=== PATIENT | female | born 1980 | race African-American/Black ===

== ENCOUNTER 2016-11-08 19:46 | Emergency (ER) | payer MEDICAID ==
[~2016-11-08] VITALS: Ht 167.6 cm; Wt 97.0 kg
[~2016-11-08 19:46] MED LIST: AMOXICILLIN500 MG OR; BACTRIM DS1 TAB PO; CIPRO500 MG OR; CLEOCIN150 MG OR; CLEOCIN300 MG OR; CLEOCIN300 MG PO; CLINDAMYCIN300 M1 PO; CORTISPORIN OTI10 ML AD; E.E.S. 400400 MG OR; FLEXERIL OR; FLEXERIL PO; LORTAB 1010 MG PO; LORTAB 5 OR; LORTAB 5-325 MG1 TAB PO; MEDDOSEPAK OR; MOTRIN800 MG PO; NAPROSYN500 MG OR; NAPROSYN500 MG PO; NO HOME MEDS; PENICILLN VK500 MG OR; PERCOCET 5/325M1 TAB OR; PERCOCET 5/325M1 TAB PO; PROMETHAZINE25 MG OR; ROBITUSSIN AC10 ML OR; TAMIFLU12 MG/ML OR; TORADOL PO; TRAMADOL HCL50 MG OR; TRAMADOL HCL50 MG PO; ULTRAM50 M1 PO; ULTRAM50 MG OR; ULTRAM50 MG PO; ZITHROMAX250 MG PO; ZOFRAN ODT4 MG OR; ZPAK PO
[2016-11-08] MEDS ORDERED: ULTRAM50 M1 PO (20:48)
[2016-11-08 20:55] VITALS: BP 106/66
== END 2016-11-08 20:55 | disposition home or self-care (01) | DRG 563 ==
LOC: ED 19:46
DX: S93.401A Sprain of unspecified ligament of right ankle, initial encounter (principal); X50.0XXA Overexertion from strenuous movement or load, initial encounter; Y92.009 Unspecified place in unspecified non-institutional (private) residence as the place of occurrence of the external cause

== ENCOUNTER 2017-07-12 06:32 | Emergency (ER) | payer MEDICAID ==
[~2017-07-12] VITALS: Ht 167.6 cm; Wt 100.0 kg
[2017-07-12] MEDS ORDERED: CLINDAMYCIN HC150 MG PO (06:42)
[2017-07-12] MEDS ORDERED: TRAMADOL HCL50 MG PO (06:42)
[2017-07-12 07:29] LABS: HEMATOCRIT 39.5 % (37.0-47.0); HEMOGLOBIN 12.7 g/dl (12.0-16.0); IMMATURE GRANULOCYTES 0.4 % (0.0-1.0); MEAN CELL VOLUME 86.2 fL CALC (80.0-100.0); MEAN CORPUSCULAR HGB 27.7 pG CALC (26.0-32.0); MEAN CORPUSCULAR HGB CONC 32.2 g/L CALC (32.0-36.0); NEUT# 11.49 thou/uL (2.00-7.15); RED BLOOD COUNT 4.58 mill/uL (4.20-5.60); RED CELL DISTRI WIDTH 14.4 % (11.5-15.5)
[2017-07-12 07:45] LABS: ALBUMIN 4.4 g/dL (3.2-5.0); ALKALINE PHOSPHATASE 74 u/l (38-126); ANION GAP 18 (6-22 (CALC)); BILIRUBIN, TOTAL 0.5 mg/dL (0.0-1.4); BUN 6 mg/dL (7-17); BUN/CREATININE RATIO 6 (12-20 (CALC)); CARBON DIOXIDE 23 mmol/l (22-30); CHLORIDE 104 mmol/l (95-108); CREATININE 1.1 mg/dL (0.5-1.0); GFR 57 ML/MIN (>=60 (CALC)); GFR FOR AFR.AMER. > 60 ML/MIN (>=60 (CALC)); LIPASE 21 u/l (23-300); SGOT/AST 17 u/l (14-36); SGPT/ALT 20 u/l (9-52); SODIUM 141 mmol/l (137-146); TOTAL PROTEIN 8.3 g/dL (6.3-8.2)
[2017-07-12 07:46] LABS: POTASSIUM 3.9 mmol/l (3.5-5.1)
[2017-07-12 08:04] LABS: BARBITURATES NEGATIVE (NEGATIVE); COCAINE NEGATIVE (NEGATIVE); METHADONE NEGATIVE (NEGATIVE); OXCYCODONE NEGATIVE (NEGATIVE); TETRAHYDROCANNABIONOL POSITIVE (NEGATIVE); TRICYLIC ANTIDEPRESSANTS NEGATIVE (NEGATIVE)
[2017-07-12] MEDS ORDERED: MOTRIN400 MG PO (08:27)
[2017-07-12] MEDS ORDERED: PHENERGAN25 MG/TAB PO (08:27)
[2017-07-12 08:33] VITALS: BP 158/68
== END 2017-07-12 08:37 | disposition home or self-care (01) | DRG 103 ==
LOC: ED 06:32
PROVIDERS: Emergency Medicine
DX: R51 Headache (principal); K08.89 Other specified disorders of teeth and supporting structures; R11.2 Nausea with vomiting, unspecified; R10.9 Unspecified abdominal pain

== ENCOUNTER 2017-07-13 05:57 | Emergency (ER) | payer MEDICAID ==
[~2017-07-13] VITALS: Ht 167.6 cm; Wt 95.9 kg
[~2017-07-13 05:57] MED LIST changes: +CLINDAMYCIN HC150 MG PO; +MOTRIN400 MG PO; +PHENERGAN25 MG/TAB PO
[2017-07-13 07:29] LABS: HEMATOCRIT 37.1 % (37.0-47.0); HEMOGLOBIN 11.8 g/dl (12.0-16.0); IMMATURE GRANULOCYTES 0.5 % (0.0-1.0); MEAN CELL VOLUME 87.1 fL CALC (80.0-100.0); MEAN CORPUSCULAR HGB 27.7 pG CALC (26.0-32.0); MEAN CORPUSCULAR HGB CONC 31.8 g/L CALC (32.0-36.0); NEUT# 10.21 thou/uL (2.00-7.15); RED BLOOD COUNT 4.26 mill/uL (4.20-5.60); RED CELL DISTRI WIDTH 14.2 % (11.5-15.5)
[2017-07-13 07:42] LABS: ANION GAP 14 (6-22 (CALC)); BUN 8 mg/dL (7-17); BUN/CREATININE RATIO 8 (12-20 (CALC)); CARBON DIOXIDE 26 mmol/l (22-30); CHLORIDE 106 mmol/l (95-108); CREATININE 1.1 mg/dL (0.5-1.0); GFR 57 ML/MIN (>=60 (CALC)); GFR FOR AFR.AMER. > 60 ML/MIN (>=60 (CALC)); POTASSIUM 3.7 mmol/l (3.5-5.1); SODIUM 142 mmol/l (137-146)
[2017-07-13 10:25] VITALS: BP 93/67
== END 2017-07-13 10:25 | disposition home or self-care (01) | DRG 138 ==
LOC: ED 05:57
PROVIDERS: Family Medicine
PROC: 0W930ZZ Drainage of Oral Cavity and Throat, Open Approach (ICD-10-PCS; principal; 2017-07-13)
DX: M27.2 Inflammatory conditions of jaws (principal); R13.10 Dysphagia, unspecified; J02.9 Acute pharyngitis, unspecified; B95.7 Other staphylococcus as the cause of diseases classified elsewhere
CPT/HCPCS: Q9967

== ENCOUNTER 2017-07-16 06:50 | Emergency (ER) | payer MEDICAID ==
[~2017-07-16] VITALS: Ht 167.6 cm; Wt 100.0 kg
[2017-07-16] MEDS ORDERED: BACTRIM DS1 TAB PO (07:43)
[2017-07-16] MEDS ORDERED: PERCOCET 5/325M1 TAB PO (10:45)
[2017-07-16 11:02] VITALS: BP 136/100
== END 2017-07-16 11:20 | disposition home or self-care (01) | DRG 159 ==
LOC: ED 06:50
PROC: 0W933ZZ Drainage of Oral Cavity and Throat, Percutaneous Approach (ICD-10-PCS; principal; 2017-07-16)
DX: K04.7 Periapical abscess without sinus (principal)

== ENCOUNTER 2017-12-10 07:33 | Emergency (ER) | payer MEDICAID ==
[~2017-12-10] VITALS: Ht 167.6 cm; Wt 90.0 kg
[2017-12-10] MEDS ORDERED: VOLTAREN1%GEL TOP (08:00)
[2017-12-10] MEDS ORDERED: MOTRIN400 MG PO (08:00)
[2017-12-10 09:06] VITALS: BP 110/71
== END 2017-12-10 09:15 | disposition home or self-care (01) ==
LOC: ED 07:33
DX: S16.1XXA Strain of muscle, fascia and tendon at neck level, initial encounter (principal); M62.838 Other muscle spasm; M25.511 Pain in right shoulder; M54.2 Cervicalgia; F17.210 Nicotine dependence, cigarettes, uncomplicated; X58.XXXA Exposure to other specified factors, initial encounter

== ENCOUNTER 2018-01-14 08:52 | Emergency (ER) | payer MEDICAID ==
[~2018-01-14] VITALS: Ht 167.6 cm; Wt 94.0 kg
[~2018-01-14 08:52] MED LIST changes: +VOLTAREN1%GEL TOP
[2018-01-14 09:56] LABS: INFLUENZA A NONE DETECTED (NONE DETECT); INFLUENZA B NONE DETECTED (NONE DETECT)
[2018-01-14] MEDS ORDERED: CLEOCIN300 MG PO (09:58)
[2018-01-14 10:00] VITALS: BP 112/77
== END 2018-01-14 10:00 | disposition home or self-care (01) ==
LOC: ED 08:52
PROVIDERS: Emergency Medicine
DX: J02.0 Streptococcal pharyngitis (principal); H92.09 Otalgia, unspecified ear; M79.1 Myalgia

== ENCOUNTER 2018-02-26 19:08 | Emergency (ER) | payer MEDICAID ==
[~2018-02-26] VITALS: Ht 167.6 cm; Wt 96.0 kg
[2018-02-27] MEDS ORDERED: ORPHENADRINE100 MG PO (02:01)
[2018-02-27] MEDS ORDERED: PERCOCET 5/325M1 TAB PO (02:01)
[2018-02-27 03:05] VITALS: BP 114/86
== END 2018-02-27 03:05 | disposition home or self-care (01) ==
LOC: ED 19:08
DX: M51.9 Unspecified thoracic, thoracolumbar and lumbosacral intervertebral disc disorder (principal)

== ENCOUNTER 2018-03-20 02:15 | Emergency (ER) | payer MEDICAID ==
[~2018-03-20] VITALS: Ht 157.5 cm; Wt 95.5 kg
[~2018-03-20 02:15] MED LIST changes: +ORPHENADRINE100 MG PO
[2018-03-20 02:49] LABS: HEMATOCRIT 39.8 % (37.0-47.0); HEMOGLOBIN 12.5 g/dl (12.0-16.0); IMMATURE GRANULOCYTES 0.3 % (0.0-5.0); MEAN CELL VOLUME 88.6 fL CALC (80.0-100.0); MEAN CORPUSCULAR HGB 27.8 pG CALC (26.0-32.0); MEAN CORPUSCULAR HGB CONC 31.4 g/L CALC (32.0-36.0); NEUT# 4.72 thou/uL (2.00-7.15); RED BLOOD COUNT 4.49 mill/uL (4.20-5.60)
[2018-03-20 03:04] LABS: ALBUMIN 4.2 g/dL (3.2-5.0); ALKALINE PHOSPHATASE 70 u/l (38-126); ANION GAP 12 (6-22 (CALC)); BILIRUBIN, TOTAL 0.3 mg/dL (0.0-1.4); BUN 12 mg/dL (7-17); BUN/CREATININE RATIO 12 (12-20 (CALC)); CARBON DIOXIDE 29 mmol/l (22-30); CHLORIDE 106 mmol/l (95-108); GFR > 60 ML/MIN (>=60 (CALC)); GFR FOR AFR.AMER. > 60 ML/MIN (>=60 (CALC)); POTASSIUM 3.7 mmol/l (3.5-5.1); SODIUM 143 mmol/l (137-146); TOTAL PROTEIN 8.7 g/dL (6.3-8.2)
[2018-03-20 03:16] LABS: MYOGLOBIN 28 ng/mL (0 - 62)
[2018-03-20 03:19] LABS: SGOT/AST 34 u/l (14-36)
[2018-03-20 03:45] LABS: URINE BILIRUBIN - DIPSTICK NEGATIVE (NEGATIVE); URINE BLOOD DIPSTICK LARGE (NEGATIVE); URINE COLOR YELLOW; URINE GLUCOSE - DIPSTICK NEGATIVE (NEGATIVE); URINE KETONE NEGATIVE (NEGATIVE); URINE LEUK ESTERASE NEGATIVE (NEGATIVE); URINE NITRITE - DIPSTICK NEGATIVE (Negative); URINE PROTEIN - DIPSTICK NEGATIVE (NEG-TRACE); URINE SPECIFIC GRAVITY >=1.030; URINE UROBILINOGEN - DIPSTICK 0.2 E.U./dL (0.2)
[2018-03-20 03:56] LABS: URINE CLARITY CLEAR
[2018-03-20] MEDS ORDERED: ZPAK PO (03:56)
[2018-03-20] MEDS ORDERED: INDOCIN25 MG PO (03:56)
[2018-03-20 03:57] LABS: URINE BACTERIA RARE hpf; URINE SQUAMOUS EPITHELIAL CELL RARE EPI/hpf (0-FEW); URINE WBC 0-2 WBC/hpf (0-5)
[2018-03-20 05:14] VITALS: BP 137/72
== END 2018-03-20 05:12 | disposition home or self-care (01) ==
LOC: ED 02:15
PROVIDERS: Emergency Medicine
DX: J06.9 Acute upper respiratory infection, unspecified (principal); R09.1 Pleurisy; R07.9 Chest pain, unspecified; R05 Cough

== ENCOUNTER 2018-05-28 08:00 | Emergency (ER) | payer OTHER ==
[~2018-05-28] VITALS: Ht 157.5 cm; Wt 100.0 kg
[~2018-05-28 08:00] MED LIST changes: +INDOCIN25 MG PO
[2018-05-28] MEDS ORDERED: CYCLOBENZAPR5 MG PO (08:24)
[2018-05-28] MEDS ORDERED: MOTRIN400 MG PO (08:24)
[2018-05-28 08:31] VITALS: BP 103/70
== END 2018-05-28 08:38 | disposition home or self-care (01) ==
LOC: ED 08:00
DX: M54.2 Cervicalgia (principal); M54.5 Low back pain; S16.1XXA Strain of muscle, fascia and tendon at neck level, initial encounter; S39.012A Strain of muscle, fascia and tendon of lower back, initial encounter; M25.512 Pain in left shoulder; M25.511 Pain in right shoulder; W01.0XXD Fall on same level from slipping, tripping and stumbling without subsequent striking against object, subsequent encounter

== ENCOUNTER 2018-05-31 05:10 | Emergency (ER) | payer OTHER ==
[~2018-05-31] VITALS: Ht 170.2 cm; Wt 102.2 kg
[~2018-05-31 05:10] MED LIST changes: +CYCLOBENZAPR5 MG PO
[2018-05-31 06:18] LABS: URINE BILIRUBIN - DIPSTICK NEGATIVE (NEGATIVE); URINE BLOOD DIPSTICK LARGE (NEGATIVE); URINE COLOR YELLOW; URINE GLUCOSE - DIPSTICK NEGATIVE (NEGATIVE); URINE KETONE NEGATIVE (NEGATIVE); URINE LEUK ESTERASE NEGATIVE (NEGATIVE); URINE NITRITE - DIPSTICK NEGATIVE (Negative); URINE PH 5.5 (4.5-8.0); URINE PROTEIN - DIPSTICK NEGATIVE (NEG-TRACE); URINE SPECIFIC GRAVITY 1.025; URINE UROBILINOGEN - DIPSTICK 0.2 E.U./dL (0.2)
[2018-05-31 06:31] LABS: URINE BACTERIA RARE hpf; URINE SQUAMOUS EPITHELIAL CELL FEW EPI/hpf (0-FEW); URINE WBC 0-2 WBC/hpf (0-5); URINE YEAST FEW hpf
[2018-05-31] MEDS ORDERED: FLEXERIL PO (07:33)
[2018-05-31] MEDS ORDERED: ULTRAM50 M1 PO (07:33)
[2018-05-31] MEDS ORDERED: NAPROSYN500 MG PO (07:39)
[2018-05-31 08:07] VITALS: BP 118/66
== END 2018-05-31 07:54 | disposition home or self-care (01) ==
LOC: ED 05:10
PROVIDERS: Emergency Medicine
DX: M54.2 Cervicalgia (principal); M54.5 Low back pain

== ENCOUNTER 2018-06-21 11:01 | Emergency (ER) | payer OTHER ==
[~2018-06-21] VITALS: Ht 170.2 cm; Wt 105.0 kg
[2018-06-21 11:59] VITALS: BP 110/82
== END 2018-06-21 12:03 | disposition home or self-care (01) ==
LOC: ED 11:01
DX: M25.521 Pain in right elbow (principal)

== ENCOUNTER 2018-07-29 13:40 | Emergency (ER) | payer OTHER ==
[~2018-07-29] VITALS: Ht 170.2 cm; Wt 99.0 kg
[2018-07-29] MEDS ORDERED: ZITHROMAX500 MG PO (14:26)
[2018-07-29 14:50] VITALS: BP 101/68
== END 2018-07-29 14:50 | disposition home or self-care (01) ==
LOC: ED 13:40
DX: H66.91 Otitis media, unspecified, right ear (principal); J02.9 Acute pharyngitis, unspecified; R50.9 Fever, unspecified; R05 Cough; R09.81 Nasal congestion

== ENCOUNTER 2019-05-31 | Emergency (ER) | payer OTHER ==
[~2019-05-31] MED LIST changes: +ZITHROMAX500 MG PO
[2019-05-31 19:45] LABS: HEMATOCRIT 37.8 % (37.0-47.0); HEMOGLOBIN 11.9 g/dl (12.0-16.0); IMMATURE GRANULOCYTES 0.2 % (0.0-5.0); MEAN CELL VOLUME 87.7 fL CALC (80.0-100.0); MEAN CORPUSCULAR HGB 27.6 pG CALC (26.0-32.0); MEAN CORPUSCULAR HGB CONC 31.5 g/L CALC (32.0-36.0); NEUT# 5.04 thou/uL (2.00-7.15); RED BLOOD COUNT 4.31 mill/uL (4.20-5.60); RED CELL DISTRI WIDTH 14.3 % (11.5-15.5)
[2019-05-31 19:52] LABS: ALBUMIN 4.1 g/dL (3.2-5.0); ALKALINE PHOSPHATASE 64 u/l (38-126); AMYLASE 150 u/l (30-110); ANION GAP 11 (6-22 (CALC)); BILIRUBIN, TOTAL 0.2 mg/dL (0.0-1.4); BUN 13 mg/dL (7-17); BUN/CREATININE RATIO 12 (12-20 (CALC)); CARBON DIOXIDE 26 mmol/l (22-30); CHLORIDE 103 mmol/l (95-108); CREATININE 1.1 mg/dL (0.5-1.0); GFR 56 ML/MIN (>=60 (CALC)); GFR FOR AFR.AMER. > 60 ML/MIN (>=60 (CALC)); LIPASE 72 u/l (23-300); POTASSIUM 3.6 mmol/l (3.5-5.1); SGOT/AST 28 u/l (14-36); SODIUM 137 mmol/l (137-146); TOTAL PROTEIN 8.4 g/dL (6.3-8.2)
[2019-05-31 20:04] LABS: MYOGLOBIN 20 ng/mL (0 - 62)
[2019-05-31] MEDS ORDERED: ORPHENADRINE100 MG PO (23:27)
[2019-05-31] MEDS ORDERED: IBUPROFEN600 MG PO (23:27)
== END 2019-05-31 23:45 | disposition home or self-care (01) ==
PROVIDERS: Emergency Medicine
DX: M54.2 Cervicalgia (principal); M79.18 Myalgia, other site

== ENCOUNTER 2019-09-24 16:34 | Emergency (ER) | payer OTHER ==
[~2019-09-24 16:34] MED LIST changes: +IBUPROFEN600 MG PO
[2019-09-24] MEDS ORDERED: NEOMYCIN/POLYMY1 SOL AS (17:31)
[2019-09-24 17:40] VITALS: BP 102/64
== END 2019-09-24 17:40 | disposition home or self-care (01) ==
LOC: ED 16:34
DX: H60.92 Unspecified otitis externa, left ear (principal)

== ENCOUNTER 2020-02-05 10:27 | Emergency (ER) | payer OTHER ==
[~2020-02-05] VITALS: Ht 170.2 cm; Wt 99.8 kg
[~2020-02-05 10:27] MED LIST changes: +NEOMYCIN/POLYMY1 SOL AS
[2020-02-05 11:21] LABS: HEMATOCRIT 36.6 % (37.0-47.0); HEMOGLOBIN 11.5 g/dl (12.0-16.0); IMMATURE GRANULOCYTES 0.4 % (0.0-5.0); MEAN CELL VOLUME 88.2 fL CALC (80.0-100.0); MEAN CORPUSCULAR HGB 27.7 pG CALC (26.0-32.0); MEAN CORPUSCULAR HGB CONC 31.4 g/dL CAL (32.0-36.0); NEUT# 6.85 thou/uL (2.00-7.15); RED BLOOD COUNT 4.15 mill/uL (4.20-5.60)
[2020-02-05 11:40] LABS: ALBUMIN 3.9 g/dL (3.2-5.0); ALKALINE PHOSPHATASE 56 u/l (38-126); ANION GAP 9 (6-22 (CALC)); BUN 10 mg/dL (7-17); BUN/CREATININE RATIO 11 (12-20 (CALC)); CARBON DIOXIDE 28 mmol/l (22-30); CHLORIDE 104 mmol/l (95-108); GFR > 60 ML/MIN (>=60 (CALC)); GFR FOR AFR.AMER. > 60 ML/MIN (>=60 (CALC)); POTASSIUM 3.8 mmol/l (3.5-5.1); SGOT/AST 19 u/l (14-36); SODIUM 137 mmol/l (137-146); TOTAL PROTEIN 7.3 g/dL (6.3-8.2)
[2020-02-05 11:41] LABS: BILIRUBIN, TOTAL 0.4 mg/dL (0.0-1.4)
[2020-02-05] MEDS ORDERED: CEPHALEXIN500 M1 PO (13:14)
[2020-02-05 13:15] VITALS: BP 106/64
== END 2020-02-05 13:15 | disposition home or self-care (01) ==
LOC: ED 10:27
PROVIDERS: Family Medicine
DX: L03.211 Cellulitis of face (principal); M25.572 Pain in left ankle and joints of left foot
CPT/HCPCS: Q9967

== ENCOUNTER 2020-05-16 22:26 | Emergency (ER) | payer OTHER ==
[~2020-05-16] VITALS: Ht 170.2 cm; Wt 105.0 kg
[~2020-05-16 22:26] MED LIST changes: +CEPHALEXIN500 M1 PO
[2020-05-16] MEDS ORDERED: PERCOCET 5/325M1 TAB PO (23:09)
[2020-05-16] MEDS ORDERED: CLINDAMYCIN300 M1 PO (23:09)
[2020-05-16 23:20] VITALS: BP 129/80
[2020-05-16] MEDS ORDERED: NO MEDS (23:29)
== END 2020-05-16 23:20 | disposition home or self-care (01) ==
LOC: ED 22:26
DX: K04.7 Periapical abscess without sinus (principal); K02.9 Dental caries, unspecified; M84.68XA Pathological fracture in other disease, other site, initial encounter for fracture; K08.409 Partial loss of teeth, unspecified cause, unspecified class

== ENCOUNTER 2020-05-21 14:50 | Emergency (ER) | payer OTHER ==
[~2020-05-21] VITALS: Ht 170.2 cm; Wt 100.0 kg
[~2020-05-21 14:50] MED LIST changes: +NO MEDS
[2020-05-21] MEDS ORDERED: IBUPROFEN600 MG PO (15:34)
[2020-05-21] MEDS ORDERED: KEFLEX500 M1 PO (15:35)
[2020-05-21 15:49] LABS: URINE BILIRUBIN - DIPSTICK NEGATIVE (NEGATIVE); URINE BLOOD DIPSTICK LARGE (NEGATIVE); URINE COLOR YELLOW; URINE GLUCOSE - DIPSTICK NEGATIVE (NEGATIVE); URINE KETONE 15 mg/dL (NEGATIVE); URINE LEUK ESTERASE NEGATIVE (NEGATIVE); URINE NITRITE - DIPSTICK NEGATIVE (Negative); URINE PH 5.5 (4.5-8.0); URINE PROTEIN - DIPSTICK 30 mg/dL (NEG-TRACE); URINE SPECIFIC GRAVITY >=1.030; URINE UROBILINOGEN - DIPSTICK 0.2 E.U./dL (0.2)
[2020-05-21 15:51] LABS: URINE EPITHELIAL CELLS FEW EPI/hpf (0-FEW); URINE RBC 25-50 RBC/hpf (0-5)
[2020-05-21 16:54] VITALS: BP 138/87
== END 2020-05-21 16:54 | disposition home or self-care (01) ==
LOC: ED 14:50
PROVIDERS: Emergency Medicine
DX: K04.7 Periapical abscess without sinus (principal); K03.81 Cracked tooth

== ENCOUNTER 2021-05-10 13:12 | Emergency (ER) | payer OTHER ==
[~2021-05-10] VITALS: Ht 170.2 cm; Wt 100.0 kg
[~2021-05-10 13:12] MED LIST changes: +KEFLEX500 M1 PO
[2021-05-10] MEDS ORDERED: ZOFRAN4 M1 PO (15:06)
[2021-05-10] MEDS ORDERED: TAM75CAP PO (15:06)
[2021-05-10 15:19] VITALS: BP 111/78
== END 2021-05-10 15:25 | disposition home or self-care (01) ==
LOC: ED 13:12
DX: U07.1 COVID-19 (principal); J11.1 Influenza due to unidentified influenza virus with other respiratory manifestations

== ENCOUNTER 2021-09-11 13:15 | Emergency (ER) | payer OTHER ==
[~2021-09-11] VITALS: Ht 170.2 cm; Wt 70.0 kg
[~2021-09-11 13:15] MED LIST changes: +TAM75CAP PO; +ZOFRAN4 M1 PO
[2021-09-11 14:41] VITALS: BP 131/76
== END 2021-09-11 14:42 | disposition home or self-care (01) ==
LOC: ED 13:15
DX: M79.642 Pain in left hand (principal)

== ENCOUNTER 2022-02-25 02:33 | Emergency (ER) | payer OTHER ==
[~2022-02-25] VITALS: Ht 170.2 cm; Wt 85.0 kg
[2022-02-25 03:20] VITALS: BP 123/76
== END 2022-02-25 03:27 | disposition home or self-care (01) ==
LOC: ED 02:33
DX: S63.601A Unspecified sprain of right thumb, initial encounter (principal); W22.8XXA Striking against or struck by other objects, initial encounter

== ENCOUNTER 2022-06-25 00:46 | Emergency (ER) | payer OTHER ==
[2022-06-25 02:48] LABS: BASO% 0.3 % (0-3); EOS% 1.9 % (0-8); HEMATOCRIT 35.5 % (37.0-47.0); HEMOGLOBIN 10.9 g/dl (12.0-16.0); IMMATURE GRANULOCYTES 0.2 % (0.0-5.0); LYMPH% 27.1 % (15-41); MEAN CELL VOLUME 89.2 fL CALC (80.0-100.0); MEAN CORPUSCULAR HGB 27.4 pG CALC (26.0-32.0); MEAN CORPUSCULAR HGB CONC 30.7 g/dL CAL (32.0-36.0); MONO% 7.1 % (2-13); NEUT# 4.09 thou/uL (2.00-7.15); NEUT% 63.4 % (42-76); RED BLOOD COUNT 3.98 mill/uL (4.20-5.60); RED CELL DISTRI WIDTH 13.6 % (11.5-15.5)
[2022-06-25 02:59] LABS: ALBUMIN 3.6 g/dL (3.2-5.0); ALKALINE PHOSPHATASE 49 u/l (38-126); AMYLASE 104 u/l (30-110); ANION GAP 8 (6-22 (CALC)); BUN 11 mg/dL (7-17); BUN/CREATININE RATIO 10 (12-20 (CALC)); CARBON DIOXIDE 27 mmol/l (22-30); CHLORIDE 107 mmol/l (95-108); CREATININE 1.1 mg/dL (0.5-1.0); GFR FOR AFR.AMER. > 60 ML/MIN (>=60 (CALC)); GFR OTHER RACES 55 ML/MIN (>=60 (CALC)); POTASSIUM 3.7 mmol/l (3.5-5.1); SGOT/AST 19 u/l (14-36); SODIUM 139 mmol/l (137-146); TOTAL PROTEIN 6.9 g/dL (6.3-8.2)
[2022-06-25 05:43] LABS: URINE BILIRUBIN - DIPSTICK NEGATIVE (NEGATIVE); URINE BLOOD DIPSTICK LARGE (NEGATIVE); URINE COLOR YELLOW; URINE GLUCOSE - DIPSTICK NEGATIVE (NEGATIVE); URINE KETONE NEGATIVE (NEGATIVE); URINE PROTEIN - DIPSTICK NEGATIVE (NEG-TRACE); URINE SPECIFIC GRAVITY >=1.030; URINE UROBILINOGEN - DIPSTICK 0.2 E.U./dL (0.2)
[2022-06-25 05:49] LABS: URINE NITRITE - DIPSTICK NEGATIVE (Negative)
[2022-06-25 05:50] LABS: URINE LEUK ESTERASE NEGATIVE (NEGATIVE)
[2022-06-25 05:51] LABS: URINE BACTERIA FEW hpf; URINE EPITHELIAL CELLS FEW EPI/hpf (0-FEW)
[2022-06-25] MEDS ORDERED: CIPROFLOXACN500 MG PO (06:59)
[2022-06-25 07:58] VITALS: BP 108/66
== END 2022-06-25 08:17 | disposition home or self-care (01) ==
LOC: ED 00:46
PROVIDERS: Emergency Medicine
DX: N39.0 Urinary tract infection, site not specified (principal); R07.89 Other chest pain; F19.10 Other psychoactive substance abuse, uncomplicated; Z20.822 Contact with and (suspected) exposure to COVID-19

== ENCOUNTER 2022-07-23 09:58 | Emergency (ER) | payer OTHER ==
[~2022-07-23] VITALS: Ht 170.2 cm; Wt 65.0 kg
[~2022-07-23 09:58] MED LIST changes: +CIPROFLOXACN500 MG PO
[2022-07-23 12:12] VITALS: BP 106/64
== END 2022-07-23 12:20 | disposition home or self-care (01) ==
LOC: ED 09:58
DX: J06.9 Acute upper respiratory infection, unspecified (principal); Z20.822 Contact with and (suspected) exposure to COVID-19

== ENCOUNTER 2023-11-26 07:25 | Emergency (ER) | payer OTHER ==
[~2023-11-26] VITALS: Ht 170.2 cm; Wt 90.0 kg
[~2023-11-26 07:25] MED LIST changes: +METRONIDAZOLE500 MG PO; +NAPROXEN375 MG PO; +NAPROXEN500 MG PO; +ZOFRAN4 MG/TAB PO
[2023-11-26] MEDS ORDERED: OFLOXACIN0.3 % OS (07:54)
[2023-11-26 08:40] VITALS: BP 118/71
== END 2023-11-26 08:47 | disposition home or self-care (01) ==
LOC: ED 07:25
DX: H10.9 Unspecified conjunctivitis (principal); J11.1 Influenza due to unidentified influenza virus with other respiratory manifestations

== ENCOUNTER 2023-12-22 08:46 | Emergency (ER) | payer OTHER ==
[2023-12-22] VITALS (12 sets, daily range): BP systolic 94–115; BP diastolic 64–83
[~2023-12-22] VITALS: Ht 170.2 cm; Wt 91.6 kg
[~2023-12-22 08:46] MED LIST changes: +OFLOXACIN0.3 % OS
[2023-12-22] MEDS ORDERED: SODIUM CHLORIDE 0.9% 1,000 ML IV ONE (08:50)
[2023-12-22] MEDS ORDERED: ONDANSETRON HCl 4 MG/2 ML SDV IV ONE (08:50)
[2023-12-22 09:18] LABS: BASO% 0.3 % (0-3); EOS% 2.8 % (0-8); HEMOGLOBIN 12.3 g/dl (12.0-16.0); IMMATURE GRANULOCYTES 0.1 % (0.0-5.0); MEAN CELL VOLUME 91.3 fL CALC (80.0-100.0); MEAN CORPUSCULAR HGB 28.8 pG CALC (26.0-32.0); MEAN CORPUSCULAR HGB CONC 31.5 g/dL CAL (32.0-36.0); MONO% 7.6 % (2-13); NEUT# 4.94 thou/uL (2.00-7.15); NEUT% 68.2 % (42-76); RED BLOOD COUNT 4.27 mill/uL (4.20-5.60)
[2023-12-22 09:25] LABS: URINE BILIRUBIN - DIPSTICK Negative (NEGATIVE); URINE BLOOD DIPSTICK Large (NEGATIVE); URINE GLUCOSE - DIPSTICK Negative (NEGATIVE); URINE KETONE Negative (NEGATIVE); URINE LEUK ESTERASE Negative (NEGATIVE); URINE NITRITE - DIPSTICK Negative (Negative); URINE PROTEIN - DIPSTICK 100 mg/dL (NEG-TRACE); URINE SPECIFIC GRAVITY 1.025; URINE UROBILINOGEN - DIPSTICK 0.2 E.U./dL (0.2)
[2023-12-22 09:26] LABS: URINE COLOR Yellow; URINE EPITHELIAL CELLS FEW EPI/hpf (0-FEW); URINE RBC 25-50 RBC/hpf (0-5)
[2023-12-22 09:38] LABS: POTASSIUM 3.9 mmol/l (3.5-5.1); TOTAL PROTEIN 7.5 g/dL (6.3-8.2)
[2023-12-22 09:39] LABS: BILIRUBIN, TOTAL 0.3 mg/dL (0.02-1.3)
[2023-12-22] MEDS ORDERED: MOTRIN400 MG/TAB PO (11:13)
[2023-12-22] MEDS ORDERED: LORTAB 5/3255 MG PO (11:13)
== END 2023-12-22 11:48 | disposition home or self-care (01) ==
LOC: ED 08:46
PROVIDERS: Family Medicine
DX: R19.7 Diarrhea, unspecified (principal); R11.2 Nausea with vomiting, unspecified; Z20.822 Contact with and (suspected) exposure to COVID-19

== ENCOUNTER 2024-01-10 15:27 | Emergency (ER) | payer OTHER ==
[~2024-01-10] VITALS: Ht 170.2 cm; Wt 92.0 kg
[~2024-01-10 15:27] MED LIST changes: +LORTAB 5/3255 MG PO; +MOTRIN400 MG/TAB PO
[2024-01-10] MEDS ORDERED: DEXAMETHASONE SOD. PHOSPHATE 10 MG/ML VIAL IM ONE (16:20)
[2024-01-10] MEDS ORDERED: KETOROLAC TROMETHAMINE 30 MG/ML SDV IM ONE (16:20)
[2024-01-10] MEDS ORDERED: METHOCARBAMOL 500 MG/TAB PO ONE (16:25)
[2024-01-10] MEDS ORDERED: TRAMADOL HYDROC50 M1 PO (19:32)
[2024-01-10] MEDS ORDERED: PREDNISONE20 MG PO (19:32)
[2024-01-10] MEDS ORDERED: METHOCARBAMOL500 MG PO (19:32)
[2024-01-10 19:50] VITALS: BP 131/57
== END 2024-01-10 19:50 | disposition home or self-care (01) ==
LOC: ED 15:27
DX: M79.18 Myalgia, other site (principal)

== ENCOUNTER 2024-01-13 08:57 | Emergency (ER) | payer OTHER ==
[~2024-01-13] VITALS: Ht 170.2 cm; Wt 83.9 kg
[2024-01-13] VITALS (10 sets, daily range): BP systolic 91–120; BP diastolic 59–82
[~2024-01-13 08:57] MED LIST changes: +METHOCARBAMOL500 MG PO; +PREDNISONE20 MG PO; +TRAMADOL HYDROC50 M1 PO
[2024-01-13 10:06] LABS: BASO% 0.6 % (0-3); EOS% 1.7 % (0-8); HEMATOCRIT 41.8 % (37.0-47.0); HEMOGLOBIN 13.5 g/dl (12.0-16.0); IMMATURE GRANULOCYTES 0.3 % (0.0-5.0); LYMPH% 27.6 % (15-41); MEAN CELL VOLUME 89.7 fL CALC (80.0-100.0); MEAN CORPUSCULAR HGB CONC 32.3 g/dL CAL (32.0-36.0); MONO% 8.7 % (2-13); NEUT# 4.24 thou/uL (2.00-7.15); NEUT% 61.1 % (42-76); RED BLOOD COUNT 4.66 mill/uL (4.20-5.60); RED CELL DISTRI WIDTH 12.9 % (11.5-15.5)
[2024-01-13 10:25] LABS: ALBUMIN 4.1 g/dL (3.2-5.0); BILIRUBIN, TOTAL 0.5 mg/dL (0.02-1.3); CREATININE 1.1 mg/dL (0.5-1.0); POTASSIUM 3.8 mmol/l (3.5-5.1); TOTAL PROTEIN 7.9 g/dL (6.3-8.2)
[2024-01-13 10:31] LABS: URINE BILIRUBIN - DIPSTICK Negative (NEGATIVE); URINE BLOOD DIPSTICK Large (NEGATIVE); URINE GLUCOSE - DIPSTICK Negative (NEGATIVE); URINE KETONE Negative (NEGATIVE); URINE LEUK ESTERASE Negative (NEGATIVE); URINE NITRITE - DIPSTICK Negative (Negative); URINE PROTEIN - DIPSTICK 100 mg/dL (NEG-TRACE); URINE SPECIFIC GRAVITY 1.025; URINE UROBILINOGEN - DIPSTICK 0.2 E.U./dL (0.2)
[2024-01-13 10:34] LABS: URINE COLOR Yellow; URINE EPITHELIAL CELLS MODERATE EPI/hpf (0-FEW); URINE RBC 25-50 RBC/hpf (0-5)
[2024-01-13 10:35] LABS: URINE MUCUS MANY hpf (NONE-FEW)
[2024-01-13 10:55] LABS: TSH, 3RD GENERATION 1.69 uIU/mL (0.47 - 4.68)
[2024-01-13] MEDS ORDERED: TORADOL PO (11:17)
[2024-01-13] MEDS ORDERED: ZPAK PO (11:17)
== END 2024-01-13 10:30 | disposition home or self-care (01) ==
LOC: ED 08:57
PROVIDERS: Family Medicine
DX: R53.83 Other fatigue (principal); E86.0 Dehydration; H66.92 Otitis media, unspecified, left ear; S76.911A Strain of unspecified muscles, fascia and tendons at thigh level, right thigh, initial encounter; X58.XXXA Exposure to other specified factors, initial encounter; Z20.822 Contact with and (suspected) exposure to COVID-19

== ENCOUNTER 2024-05-23 10:14 | Emergency (ER) | payer OTHER ==
[~2024-05-23] VITALS: Ht 170.2 cm; Wt 92.9 kg
[2024-05-23 10:20] VITALS: BP 118/86
[2024-05-23 10:45] VITALS: BP 118/87
[2024-05-23] MEDS ORDERED: ZPAK PO (11:50)
[2024-05-23] MEDS ORDERED: BENZONATATE200 MG PO (11:51)
[2024-05-23 11:55] VITALS: BP 118/87
== END 2024-05-23 12:08 | disposition home or self-care (01) ==
LOC: ED 10:14
DX: J06.9 Acute upper respiratory infection, unspecified (principal); Z20.822 Contact with and (suspected) exposure to COVID-19